=== PATIENT | male | born 2000 | race Two or more races ===

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

== ENCOUNTER 2019-03-09 13:53 | Emergency (ER) | payer OTHER ==
[2019-03-09 14:18] VITALS: BP 136/77
--- NOTE | 2019-03-09 14:31 | UC ---
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 Was assessed at [facility] with the concern that there might be shards of glass in the wound. Has numbness along the medial border of the toe distal to the wound. Last tetanus was 8 years ago. - History Of Current Complaint Chief Complaint: UCLaceration Stated Complaint: FB IN FOOT LAC TO FOOT Time Seen by Provider: 03/09/19 14:22 Hx Obtained From: Patient Laceration Location: Toe - right fourth toe Mechanism Of Injury: Sharp Trauma Onset/Duration: Sudden Onset Severity: Moderate Pain Intensity: 5 Aggravating Factors: Movement - Allergies/Home Medications Allergies/Adverse Reactions: Allergies Allergy/AdvReac Type Severity Reaction Status Date / Time No Known Allergies Allergy Verified 03/09/19 14:13 Home Medications: Home Medications NK [No Home Medications Reported] 03/09/19 [History Confirmed 03/09/19] PMH/Surg Hx/FS Hx/Imm Hx Previously Healthy: Yes Cardiovascular History: Hypertension - no medications for treatment, being monitored Other History Of: Negative For: Anticoagulant Therapy - Surgical History Surgical History: None - Family History Known Family History: Positive: Non-Contributory - Social History Occupation: Student Lives: Dormitory/Roommates Alcohol Use: Occasionally Substance Use Type: None Smoking Status (MU): Former Smoker Review of Systems All Other Systems Reviewed And Are Negative: Yes Constitutional: Positive: Negative Skin: Positive: Other - laceration Eyes: Positive: Negative Respiratory: Positive: Negative Cardiovascular: Positive: Other - hx of elevated blood pressure. Musculoskeletal: Positive: Negative Neurological: Positive: Numbness - mild at distal digit Is Patient Immunocompromised?: No Physical Exam Triage Information Reviewed: Yes Appearance: Well-Appearing, Pain Distress - mild Vital Signs: Initial Vital Signs Temp 99.0 F 03/09/19 14:14 Pulse 81 03/09/19 14:14 Resp 18 03/09/19 14:14 BP 136/77 03/09/19 14:14 Pulse Ox 98 03/09/19 14:14 ENT: Positive: Normal ENT inspection Respiratory: Positive: Lungs clear, Normal breath sounds Cardiovascular: Positive: RRR, No Murmur Psychological Exam: Normal Skin Exam: Other - laceration from medial base of third digit extends through the interdigital space to the Images Feet (Multiple View): 1 - medial digit, site of laceration Laceration Repair - Laceration Repair 1 Description: Irregular Laceration Size After Repair: Length (cm) - 3 Contamination/FB Removal: flushed, no foreign body seen Type Injection: Digital - digital block using 4 cc of lidocaine with good anaesthesia. Anesthesia Used: 2.0% Lido Irrigation With Pressure Irrigation Device: Yes Closure Material: Sutures - 7 interrupted sutures 4-0 prolene used to close skin surface. Closure Method: Single Layer Suture Of: Skin Suture Type: Prolene Diagnostics - Radiology No standard instances Radiology Interpretation Completed By: Radiologist - No evidence of foreign body in soft tissues with normal osseous structures Laceration Course/Dx - Course/Dx Course Of Treatment: repair of laceration. Discussed activity. Post op shoe for protection. - Differential Dx - Laceration/Wound Differental Diagnoses: Laceration - Diagnosis Provider Diagnosis: Laceration of fourth toe of right foot - Physician Notification/Consults Discussed Patient Care With: Jeremy Mason Time Discussed With Above Provider: 15:10 - discussed laceration of digital nerve. Advised skin repair and referral to hand surgeon Discharge ED - Sign-Out/Discharge Documenting (check all that apply): Patient Departure All imaging exams completed and their final reports reviewed: Yes - Discharge Plan Condition: Good Disposition: HOME Patient Education Materials: Diphtheria/Acellular Pertussis/Tetanus Booster Vaccine (By injection), Laceration (ED) Referrals: No Primary Care Phys,NOPCP [Primary Care Provider] - Additional Instructions: You have received a tetanus booster today ([id number]) --good for 10 years. SEVEN sutures were placed. Please have the sutures removed in 7 days, and in the meantime ensure that you stay off the foot to allow good healing. Monitor for signs of infection which would include redness and increasing pain. - Billing Disposition and Condition Condition: GOOD Disposition: Home
[2019-03-09] MEDS ORDERED: Ibuprofen TAB* 600 MG PO ONE (14:37)
[2019-03-09] MEDS ORDERED: Tetan/Diph/Pertus SYR(Tdap)* 0.5 ML SYR(BOOSTRIX) use SYR contains LATEX IM ONE (14:42)
[2019-03-09] MEDS ORDERED: Lidocaine 2% PF * 5 ML VIAL INJ ONE (14:54)
--- NOTE | 2019-04-06 12:46 | UC ---
- Progress Note Progress Note: Patient requesting a note stating he was here on March 09, 2019. Note given. Course/Dx - Diagnoses Provider Diagnoses: Laceration of fourth toe of right foot - Provider Notifications Time Discussed With Above Provider: 15:10 - discussed laceration of digital nerve. Advised skin repair and referral to hand surgeon Discharge ED - Sign-Out/Discharge Documenting (check all that apply): Post-Discharge Follow Up All imaging exams completed and their final reports reviewed: Yes - Discharge Plan Condition: Good Disposition: HOME Patient Education Materials: Diphtheria/Acellular Pertussis/Tetanus Booster Vaccine (By injection), Laceration (ED) Forms: *Gen. Provider Communication Referrals: No Primary Care Phys,[facility] [Primary Care Provider] - Additional Instructions: You have received a tetanus booster today ([id number]) --good for 10 years. SEVEN sutures were placed. Please have the sutures removed in 7 days, and in the meantime ensure that you stay off the foot to allow good healing. Monitor for signs of infection which would include redness and increasing pain. - Billing Disposition and Condition Condition: GOOD Disposition: Home
== END 2019-03-09 16:10 | disposition home or self-care (01) ==
LOC: UCEAST 13:53
DX: S91.114A Laceration without foreign body of right lesser toe(s) without damage to nail, initial encounter (principal); I10 Essential (primary) hypertension; Z87.891 Personal history of nicotine dependence; W20.8XXA Other cause of strike by thrown, projected or falling object, initial encounter; W25.XXXA Contact with sharp glass, initial encounter; Y92.9 Unspecified place or not applicable
CPT/HCPCS: 12002; 90471; 90715; 99212; A9270-GY; G0463

== ENCOUNTER 2019-03-19 10:17 | Emergency (ER) | payer OTHER ==
[2019-03-19 10:29] VITALS: BP 141/72
--- NOTE | 2019-03-19 10:49 | UC ---
Skin Complaint HPI - HPI Summary HPI Summary: patient cut R fourth toe on mirror glass 10 days ago. needs SR and foot looks swollen and red, very tender near lac - History of Current Complaint Chief Complaint: UCLaceration Time Seen by Provider: 03/19/19 10:24 Stated Complaint: SUTURE REMOVAL Hx Obtained From: Patient Onset/Duration: Sudden Onset Onset Severity: Moderate Current Severity: Moderate Pain Intensity: 4 Location: Foot (Right) Aggravating Factor(s): Touch Alleviating Factor(s): Nothing Associated Signs & Symptoms: Positive: Tenderness. Negative: Fever, Chills, Drainage Related History: Trauma - Allergy/Home Medications Allergies/Adverse Reactions: Allergies Allergy/AdvReac Type Severity Reaction Status Date / Time No Known Allergies Allergy Verified 03/19/19 10:29 PMH/Surg Hx/FS Hx/Imm Hx Previously Healthy: Yes Other History Of: Negative For: Anticoagulant Therapy - Surgical History Surgical History: None - Family History Known Family History: Positive: Non-Contributory - Social History Occupation: Student Lives: Dormitory/Roommates Alcohol Use: Occasionally Substance Use Type: None Smoking Status (MU): Former Smoker Review of Systems All Other Systems Reviewed And Are Negative: Yes Constitutional: Positive: Negative Skin: Positive: Other - sutures R 4th toe Respiratory: Positive: Negative Cardiovascular: Positive: Negative Musculoskeletal: Positive: Negative Neurological: Positive: Negative Psychological: Positive: Negative Is Patient Immunocompromised?: No Physical Exam Triage Information Reviewed: Yes Appearance: Well-Appearing, No Pain Distress, Well-Nourished Vital Signs: Initial Vital Signs Temp 98.1 F 03/19/19 10:27 Pulse 65 03/19/19 10:27 Resp 18 03/19/19 10:27 BP 141/72 03/19/19 10:27 Pulse Ox 99 03/19/19 10:27 Vital Signs Reviewed: Yes Respiratory Exam: Normal Respiratory: Positive: Lungs clear Cardiovascular Exam: Normal Cardiovascular: Positive: RRR Musculoskeletal Exam: Normal Neurological Exam: Normal Psychological Exam: Normal Skin: Positive: Other - R dorsal foot erythemic, tender, streaking to lower bolden , no drainage, sutures intact Course/Dx - Course Course Of Treatment: 8 sutures were removed w/o difficulty from laceration between Rn 3rd and 4th toe - Differential Diagnoses - Skin Complaint Differential Diagnoses: Abscess, Cellulitis - Diagnoses Provider Diagnosis: Cellulitis, Encounter for removal of sutures Discharge ED - Sign-Out/Discharge Documenting (check all that apply): Patient Departure All imaging exams completed and their final reports reviewed: No Studies - Discharge Plan Condition: Stable Disposition: HOME Prescriptions: Cephalexin CAP* [Keflex 500 CAP*] 500 mg PO QID #40 cap Patient Education Materials: Cellulitis (ED) [facility] [Primary Care Provider] - 3 Days (if no better) Additional Instructions: elevate foot and apply warm packs start antibiotic and take as directed use crutches and post op shoe for next 2-3 days ibuprofen as directed for pain - Billing Disposition and Condition Condition: STABLE Disposition: Home
--- NOTE | 2019-03-20 15:57 | UC ---
- Progress Note Progress Note: The patient called here and wanted his prescription changed to [facility] because they deliver therefore the prescription was changed. Course/Dx - Diagnoses Provider Diagnoses: Cellulitis, Encounter for removal of sutures Discharge ED - Sign-Out/Discharge Documenting (check all that apply): Post-Discharge Follow Up All imaging exams completed and their final reports reviewed: No Studies - Discharge Plan Condition: Stable Disposition: HOME Prescriptions: cephALEXin [Keflex] 500 mg PO QID 10 Days #40 capsule Patient Education Materials: Cellulitis (ED) Forms: *Gen. Provider Communication Referrals: [facility] [Primary Care Provider] - 3 Days (if no better) Additional Instructions: elevate foot and apply warm packs start antibiotic and take as directed use crutches and post op shoe for next 2-3 days ibuprofen as directed for pain - Billing Disposition and Condition Condition: STABLE Disposition: Home
== END 2019-03-19 10:58 | disposition home or self-care (01) ==
LOC: UCEAST 10:17
DX: S91.114D Laceration without foreign body of right lesser toe(s) without damage to nail, subsequent encounter (principal); L03.115 Cellulitis of right lower limb; W25.XXXD Contact with sharp glass, subsequent encounter
CPT/HCPCS: 99212; G0463

== ENCOUNTER 2019-07-21 12:42 | Emergency (ER) | payer OTHER ==
--- OUTSIDE RECORDS SUMMARY | 2019-07-21 13:21 | XMS REPORT | Continuity of Care Document ---
:2000 External Reference #:[id number] Author Name Raleigh Meraz MD Address [address] [place] [address] Problems Active Problems Provider Date Essential hypertension Raleigh Meraz MD Onset: 12/19/2018 Social History Type Date Description Comments Sex Unknown Tobacco Use Start: Unknown End: Former Cigarette Smoker quit age 18 Unknown Tobacco Use Start: Unknown Never Smoked Cigars Tobacco Use Start: Unknown Never Smoked A Pipe Smokeless Tobacco Never Used Smokeless Tobacco ETOH Use Denies alcohol use Allergies, Adverse Reactions, Alerts Description No Known Drug Allergies Medications Active Medications SIG Qnty Indications Ordering Provider Date Fluticasone 2 puffs both 47.4ml J31.0 Raleigh Meraz 06/08/2019 Propionate sides once a day 50mcg/Act Suspension Multivitamin Adult as directed Unknown Tablets Immunizations Description No Information Available Vital Signs Date Vital Result Comment 06/08/2019 10:09am Weight 138.00 lb Weight 62.597 kg Height 68 inches 5'8" Height in cm's 172.7 cm BMI (Body Mass Index) 21.0 kg/m2 12/19/2018 10:27am Weight 138.00 lb Weight 62.597 kg Height 68 inches 5'8" Height in cm's 172.7 cm BMI (Body Mass Index) 21.0 kg/m2 Body Mass Index Percentile 25 % Results Description No Information Available Procedures Date Code Description Status 06/08/2019 15102 Fiberoptic Laryngoscopy Completed Medical Devices Description No Information Available Encounters Type Date Location Provider Dx Diagnosis Office Visit 06/08/2019 [facility] 05-24-2019 Raleigh Meraz J31.0 Chronic rhinitis 10:15a R49.0 Dysphonia Office Visit 12/19/2018 [facility],After Raleigh Meraz R13.10 Dysphagia, 10:15a 05/24/07 unspecified J03.90 Acute tonsillitis, unspecified Assessments Date Code Description Provider 06/08/2019 J31.0 Chronic rhinitis Raleigh Meraz MD 06/08/2019 R49.0 Dysphonia Raleigh Meraz MD 12/19/2018 R13.10 Dysphagia, unspecified Raleigh Meraz MD 12/19/2018 J03.90 Acute tonsillitis, unspecified Raleigh Meraz MD Plan of Treatment 12/19/2018 - Raleigh Meraz MDR13.10 Dysphagia, vydbkrttbthS99.90 Acute tonsillitis, unspecifiedComments:Tonsil stones, no evidence of significant mucosal other disease. Reassured no evidence of neoplasm. Functional Status Description No Information Available Mental Status Description No Information Available Referrals Description No Information Available
[2019-07-21 14:33] LABS: Hematocrit 46 % (42-52); Hemoglobin 15.6 g/dL (14.0-18.0); Mean Corpuscular HGB Conc 34 g/dL (31-36); Mean Corpuscular Hemoglobin 27 pg (27-31); Mean Corpuscular Volume 80 fL (80-94); Mean Platelet Volume 7.8 fL (7.4-10.4); Platelet Count 226 10^3/uL (150-450); Red Blood Count 5.78 10^6 /uL (4.18-5.48); Red Cell Distribution Width 14 % (10-15); White Blood Count 2.6 10^3/uL (3.5-10.8)
[2019-07-21 14:51] LABS: Urine Appearance Clear; Urine Bilirubin Negative (Negative); Urine Blood Negative (Negative); Urine Color Yellow; Urine Glucose Negative (Negative); Urine Ketones 1+ (Negative); Urine Nitrite Negative (Negative); Urine Protein Negative (Negative); Urine Specific Gravity 1.017 (1.010-1.030); Urine Urobilinogen Negative (Negative)
[2019-07-21 14:52] LABS: Activated Partial Thrombo Time 36.9 seconds (26.0-38.0); INR 1.16 (0.82-1.09)
[2019-07-21 14:53] LABS: ABS Lymphocytes 1.3 10^3/ul (1.0-4.8); ABS Monocytes 0.3 10^3/ul (0-0.8); ABS Neutrophils 0.8 10^3/ul (1.5-7.7); Eosinophil % 1.9 %; Lymphocyte % 53.2 %; Nucleated Red Blood Cells % 0.1
[2019-07-21 14:54] LABS: Albumin 5.1 g/dL (3.2-5.2); Albumin/Globulin Ratio 1.7 (1-3); BUN/Creatinine Ratio 15.7 (8-20); Calcium 9.9 mg/dL (8.6-10.3); EGFR African American 142.9 (>60); EGFR Non-African American 118.1 (>60); Potassium 3.7 mmol/L (3.5-5.0); Total Bilirubin 0.6 mg/dL (0.2-1.0); Total Protein 8.1 g/dL (6.4-8.9)
[2019-07-21 15:44] LABS: HIV 4th Generation Nonreactive (Nonreactive)
--- NOTE | 2019-07-21 15:44 | ED ---
GI/ HPI - HPI Summary HPI Summary: This is a 19 year old male presenting to [facility] with a chief complaint of possible GI bleed. The patient states he coughed up blood and noticed blood in his stool in the last 2 days. He reports fever and nausea. He states he had small amounts of blood for a week, but noticed he was coughing large amounts today. He reports diarrhea. He states it is possible it is food related with a tomato-based chicken he ate. He states he had a cold 2 weeks ago and has had recent weight loss over the last two weeks. Pt denies any chills, erythema of eyes, sore throat, CP, SOB, abdominal pain, dysuria, hematuria, myalgia, edema , rash, or dizziness. - History of Current Complaint Chief Complaint: EDGeneral Time Seen by Provider: 07/21/19 14:01 Stated Complaint: COUGHING UP BLOOD PER PT Hx Obtained From: Patient Onset/Duration: Started Hours Ago Pain Intensity: 6 - Allergy/Home Medications Allergies/Adverse Reactions: Allergies Allergy/AdvReac Type Severity Reaction Status Date / Time No Known Allergies Allergy Verified 07/21/19 13:05 Home Medications: Home Medications NK [No Home Medications Reported] 07/21/19 [History Confirmed 07/21/19] PMH/Surg Hx/FS Hx/Imm Hx Endocrine/Hematology History: Denies: Hx Anticoagulant Therapy Cardiovascular History: Denies: Hx Pacemaker/ICD History: Denies: Hx Dialysis Sensory History: Denies: Hx Eye Prosthesis, Hx Legally Blind, Hx Deafness Opthamlomology History: Denies: Hx Eye Prosthesis, Hx Legally Blind Neurological History: Denies: Hx Dementia Psychiatric History: Denies: Hx Autism - Immunization History Date of Influenza Vaccine: none Infectious Disease History: No Infectious Disease History: Denies: Traveled Outside the [place] in Last 30 Days - Family History Known Family History: Positive: Hypertension, Diabetes, Other - Cancer, Lupus - Social History Alcohol Use: Occasionally Hx Substance Use: No Substance Use Type: Reports: None Hx Tobacco Use: Yes Smoking Status (MU): Former Smoker Review of Systems Positive: Fever, Other - Weight loss. Negative: Chills Negative: Erythema Negative: Sore Throat Negative: Chest Pain Positive: Cough - Hemoptysis. Negative: Shortness Of Breath Positive: Diarrhea, Nausea, Other - blood in stool . Negative: Abdominal Pain, Vomiting Negative: dysuria, hematuria Negative: Myalgia, Edema Negative: Rash Neurological/Mental Status: Other - Neg: Dizziness All Other Systems Reviewed And Are Negative: No Physical Exam - Summary Physical Exam Summary: Constitutional: Well-developed, Well-nourished, Alert. (-) Distressed Skin: Warm, Dry HENT: Normocephalic; Atraumatic Eyes: Conjunctiva normal Neck: Musculoskeletal ROM normal neck. (-) JVD, (-) Stridor, (-) Tracheal deviation Cardio: Rhythm regular, rate normal, Heart sounds normal; Intact distal pulses; The pedal pulses are 2+ and symmetric. Radial pulses are 2+ and symmetric. (-) Murmur Pulmonary/Chest wall: Effort normal. (-) Respiratory distress, (-) Wheezes, (-) Rales. Diminished breath sounds. Abd: Soft, (-) tenderness, (-) Distension, (-) Guarding, (-) Rebound Musculoskeletal: (-) Edema Lymph: (-) Cervical adenopathy Neuro: Alert, Oriented x3 Psych: Mood and affect Normal Triage Information Reviewed: Yes Vital Signs On Initial Exam: Initial Vitals Temp Pulse Resp BP Pulse Ox 98.6 F 75 18 161/100 100 07/21/19 13:01 07/21/19 13:01 07/21/19 13:01 07/21/19 13:01 07/21/19 13:01 Vital Signs Reviewed: Yes Procedures - Sedation Patient Received Moderate/Deep Sedation with Procedure: No Diagnostics - Vital Signs Vital Signs Temp Pulse Resp BP Pulse Ox 07/21/19 14:46 99 07/21/19 14:12 75 18 153/91 100 07/21/19 13:01 98.6 F 75 18 161/100 100 - Laboratory Lab Results: Lab Results 07/21/19 07/21/19 07/21/19 Range/Units 14:17 14:17 14:17 WBC 2.6 L (3.5-10.8) 10^3/uL RBC 5.78 H (4.18-5.48) 10^6 /uL Hgb 15.6 (14.0-18.0) g/dL Hct 46 (42-52) % MCV 80 (80-94) fL MCH 27 (27-31) pg MCHC 34 (31-36) g/dL RDW 14 (10-15) % Plt Count 226 (150-450) 10^3/uL MPV 7.8 (7.4-10.4) fL Neut % (Auto) 33.2 % Lymph % (Auto) 53.2 % [place] % (Auto) 10.3 % Eos % (Auto) 1.9 % Baso % (Auto) 1.4 % Absolute Neuts (auto) 0.8 L* (1.5-7.7) 10^3/ul Absolute Lymphs (auto) 1.3 (1.0-4.8) 10^3/ul Absolute Monos (auto) 0.3 (0-0.8) 10^3/ul Absolute Eos (auto) 0.0 (0-0.6) 10^3/ul Absolute Basos (auto) 0.0 (0-0.2) 10^3/ul Absolute Nucleated RBC 0.0 10^3/ul Nucleated RBC % 0.1 Hem Pathologist Commnt Pending INR (Anticoag Therapy) 1.16 H (0.82-1.09) APTT 36.9 (26.0-38.0) seconds Sodium 138 (135-145) mmol/L Potassium 3.7 (3.5-5.0) mmol/L Chloride 99 L (101-111) mmol/L Carbon Dioxide 29 (22-32) mmol/L Anion Gap 10 (2-11) mmol/L BUN 13 (6-24) mg/dL Creatinine 0.83 (0.67-1.17) mg/dL Est GFR ( Amer) 142.9 (>60) Est GFR (Non-Af Amer) 118.1 (>60) BUN/Creatinine Ratio 15.7 (8-20) Glucose 79 (70-100) mg/dL Lactic Acid (0.5-2.0) mmol/L Calcium 9.9 (8.6-10.3) mg/dL Total Bilirubin 0.60 (0.2-1.0) mg/dL AST 27 (13-39) U/L ALT 17 (7-52) U/L Alkaline Phosphatase 71 (34-104) U/L Troponin I 0.00 (<0.03) ng/mL Total Protein 8.1 (6.4-8.9) g/dL Albumin 5.1 (3.2-5.2) g/dL Globulin 3.0 (2-4) g/dL Albumin/Globulin Ratio 1.7 (1-3) Urine Color Urine Appearance Urine pH (5-9) Ur Specific [place] (1.010-1.030) Urine Protein (Negative) Urine Ketones (Negative) Urine Blood (Negative) Urine Nitrate (Negative) Urine Bilirubin (Negative) Urine Urobilinogen (Negative) Ur Leukocyte Esterase (Negative) Urine Glucose (Negative) 07/21/19 07/21/19 Range/Units 14:17 14:37 WBC (3.5-10.8) 10^3/uL RBC (4.18-5.48) 10^6 /uL Hgb (14.0-18.0) g/dL Hct (42-52) % MCV (80-94) fL MCH (27-31) pg MCHC (31-36) g/dL RDW (10-15) % Plt Count (150-450) 10^3/uL MPV (7.4-10.4) fL Neut % (Auto) % Lymph % (Auto) % [place] % (Auto) % Eos % (Auto) % Baso % (Auto) % Absolute Neuts (auto) (1.5-7.7) 10^3/ul Absolute Lymphs (auto) (1.0-4.8) 10^3/ul Absolute Monos (auto) (0-0.8) 10^3/ul Absolute Eos (auto) (0-0.6) 10^3/ul Absolute Basos (auto) (0-0.2) 10^3/ul Absolute Nucleated RBC 10^3/ul Nucleated RBC % Hem Pathologist Commnt INR (Anticoag Therapy) (0.82-1.09) APTT (26.0-38.0) seconds Sodium (135-145) mmol/L Potassium (3.5-5.0) mmol/L Chloride (101-111) mmol/L Carbon Dioxide (22-32) mmol/L Anion Gap (2-11) mmol/L BUN (6-24) mg/dL Creatinine (0.67-1.17) mg/dL Est GFR ( Amer) (>60) Est GFR (Non-Af Amer) (>60) BUN/Creatinine Ratio (8-20) Glucose (70-100) mg/dL Lactic Acid 0.7 (0.5-2.0) mmol/L Calcium (8.6-10.3) mg/dL Total Bilirubin (0.2-1.0) mg/dL AST (13-39) U/L ALT (7-52) U/L Alkaline Phosphatase (34-104) U/L Troponin I (<0.03) ng/mL Total Protein (6.4-8.9) g/dL Albumin (3.2-5.2) g/dL Globulin (2-4) g/dL Albumin/Globulin Ratio (1-3) Urine Color Yellow Urine Appearance Clear Urine pH 7.0 (5-9) Ur Specific [place] 1.017 (1.010-1.030) Urine Protein Negative (Negative) Urine Ketones 1+ A (Negative) Urine Blood Negative (Negative) Urine Nitrate Negative (Negative) Urine Bilirubin Negative (Negative) Urine Urobilinogen Negative (Negative) Ur Leukocyte Esterase Negative (Negative) Urine Glucose Negative (Negative) Result Diagrams: 07/21/19 14:17 07/21/19 14:17 Lab Statement: Any lab studies that have been ordered have been reviewed, and results considered in the medical decision making process. - Radiology CXR Radiology Interpretation Completed By: Radiologist Summary of Radiographic Findings: Elevated lung volumes may reflect obstructive lung disease or simply exuberant inspiratory effort for examination. No pneumonia or focal pulmonary lesions evident. ED Provider has reviewed this report. - CT Chest/Thorax CTA CT Interpretation Completed By: Radiologist Summary of CT Findings: 1. No visible acute pulmonary embolism. 2. No aortic dissection. 3. No other acute CT Pathology. ED Provider has reviewed this report. GIGU Course/Dx - Course Course Of Treatment: This is a 19 year old male presenting to [facility] with a chief complaint of possible GI bleed. The patient states he coughed up blood and noticed blood in his stool in the last 2 days. He reports fever and nausea. He states he had small amounts of blood for a week, but noticed he was coughing large amounts today. He reports diarrhea. He states it is possible it is food related with a tomato-based chicken he ate. Labs reveal WBC 2.6 L, RBC is 5.78 H , Absolute Neuts 0.8 L, INR 1.16 H, Chloride 99 L, Urine Ketones 1+A. CXR and CTA Chest were unremarkable. Spoke with Dr. Valera, Haematology, who stated neutropenia likely related to a viral syndrome. No evidence of blood loss, PE, pneumonia, or tuberculosis. Plan for discharge was discussed with the patient and he understands and agrees with this plan. - Diagnoses Provider Diagnoses: Neutropenia, Viral syndrome, URI (upper respiratory infection) Discharge ED - Sign-Out/Discharge Documenting (check all that apply): Patient Departure - Discharge - Discharge Plan Condition: Stable Disposition: HOME Patient Education Materials: Neutropenia (ED), Upper Respiratory Infection (ED) Referrals: Remberto Valera MD [Medical Doctor] - 2 Days [facility], [Primary Care Provider] - 3 Days Additional Instructions: Follow up with Hematology Dr. Valera in 2-3 days, and [facility] in 3-5 days. Return to ED with new or worsening symptoms. - Attestation Statements Document Initiated by Scribe: Yes Documenting Scribe: Martinez Sharma Provider For Whom Scribe is Documenting (Include Credential): Joseph Horn MD Scribe Attestation: Martinez Connolly, scribed for Joseph Horn MD on 07/21/19 at 1725. Status of Scribe Document: Ready
[2019-07-21] MEDS ORDERED: Iohexol 350* (CONTRAST) 500 ML MDV IV ONE (17:30)
[2019-07-21 19:51] VITALS: BP 157/62
== END 2019-07-21 19:50 | disposition home or self-care (01) ==
LOC: ED 12:42
DX: J06.9 Acute upper respiratory infection, unspecified (principal); B34.9 Viral infection, unspecified; D70.9 Neutropenia, unspecified; Z87.891 Personal history of nicotine dependence
CPT/HCPCS: 36415; 71046; 71275; 80053; 81003; 83605; 84484; 85025; 85060; 85610; 85730; 87040; 87389; 99283; Q9967